=== PATIENT | male | born 1960 | race Caucasian/White ===

== ENCOUNTER 2019-07-08 09:39 | Emergency (ER) | payer BC, MEDICAID ==
--- NOTE | 2019-07-08 10:48 | EDM.PDOC ---
ED HPI GENERAL MEDICAL PROBLEM - General Chief Complaint: Abdominal Pain Stated Complaint: RT SIDE PAIN Time Seen by Provider: 07/08/19 10:38 - History of Present Illness INITIAL COMMENTS - FREE TEXT/NARRATIVE: 58-year-old male presents the emergency room with right-sided abdominal pain. This pain started last night. It was in his right flank region. It awoke him shortly after midnight probably been the most severe pain he ever had. Patient has not had any fevers or chills. He is never had pain like this in the past. Patient denies any abdominal surgeries in the past. Patient describes a bloating sensation in his abdomen. And at times this pain tends to radiate to the right groin. He really does not have too much nausea no vomiting no diarrhea no constipation. He has not noticed any blood in his urine. He does have a history of prostate problems and might have a history of some renal insufficiency. Right Lower Abdomen Pain Score (Numeric/FACES): 4 - Related Data Allergies Allergy/AdvReac Type Severity Reaction Status Date / Time No Known Allergies Allergy Verified 07/08/19 09:55 Home Meds: Home Meds Levothyroxine 175 mg PO DAILY 05/18/16 [History] Lisinopril 40 mg PO DAILY 05/18/16 [History] Tadalafil [Cialis] 5 mg PO DAILY 05/18/16 [History] amLODIPine [Norvasc] 5 mg PO DAILY 05/18/16 [History] Aspirin 81 mg PO DAILY 07/08/19 [History] Famotidine [Pepcid] 20 mg PO DAILY 07/08/19 [History] Hydroxychloroquine [Plaquenil] 200 mg PO BID 07/08/19 [History] ISOtretinoin [Absorica] 40 mg PO ASDIRECTED 07/08/19 [History] oxyCODONE 5 - 10 mg PO Q6H #20 tab 07/08/19 [Rx] Past Medical History HEENT History: Reports: Impaired Vision Cardiovascular History: Reports: High Cholesterol, Hypertension Respiratory History: Reports: None Gastrointestinal History: Reports: None Genitourinary History: Reports: Prostate Disorder Psychiatric History: Reports: None Endocrine/Metabolic History: Reports: Hypothyroidism, Obesity/BMI 30+ Hematologic History: Reports: None Immunologic History: Reports: None Oncologic (Cancer) History: Reports: None Dermatologic History: Reports: Other (See Below) Other Dermatologic History: Pt states that he has a skin condition that is causing him to lose his hair, unsure of what it is called. 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 Social & Family History - Tobacco Use Smoking Status *Q: Never Smoker - Caffeine Use Caffeine Use: Reports: None - Recreational Drug Use Recreational Drug Use: No ED ROS GENERAL - Review of Systems Review Of Systems: See Below Constitutional: Reports: No Symptoms HEENT: Reports: No Symptoms Respiratory: Reports: No Symptoms Cardiovascular: Reports: No Symptoms GI/Abdominal: Reports: Abdominal Pain, Nausea. Denies: Constipation, Diarrhea, Vomiting : Denies: Dysuria, Flank Pain, Hematuria, Pain Musculoskeletal: Reports: No Symptoms Skin: Reports: No Symptoms ED EXAM, GI/ABD - Physical Exam Exam: See Below Exam Limited By: No Limitations General Appearance: No: Alert, No Apparent Distress Head: Atraumatic, Normocephalic Neck: Normal Inspection, Supple, Non-Tender, Full Range of Motion. No: Lymphadenopathy (L), Lymphadenopathy (R) Respiratory/Chest: No Respiratory Distress, Lungs Clear, Normal Breath Sounds Cardiovascular: Regular Rate, Rhythm, No Edema, No Murmur GI/Abdominal Exam: Normal Bowel Sounds, Soft, Other (He may have a little bit of bloating. He has no left-sided abdominal pain whatsoever he has pain in the right side of his abdomen both upper and lower quadrant this is not generally worsened with palpation and to you get to the right upper quadrant. He has no suprapubic discomfort. No rigidity rebound or guarding noted) Course - Vital Signs Last Recorded V/S: Last Vital Signs Temp 36.8 C 07/08/19 09:50 Pulse 68 07/08/19 13:00 Resp 16 07/08/19 09:50 BP 130/80 07/08/19 12:10 Pulse Ox 97 07/08/19 13:00 - Orders/Labs/Meds Orders: Active Orders 24 hr Category Date Time Status Lactated Ringers [Ringers, Lactated] 1,000 ml Med 07/08/19 11:00 Active IV ASDIRECTED Medication Orders Lactated Ringer's (Ringers, Lactated) 1,000 mls @ 125 mls/hr IV ASDIRECTED JEOVANNY Last Admin: 07/08/19 11:29 Dose: 125 mls/hr Labs: Laboratory Tests 07/08/19 07/08/19 07/08/19 Range/Units 11:55 11:55 13:16 WBC 11.97 H (4.23-9.07) K/mm3 RBC 4.90 (4.63-6.08) M/mm3 Hgb 14.5 (13.7-17.5) gm/dl Hct 44.0 (40.1-51.0) % MCV 89.8 (79.0-92.2) fl MCH 29.6 (25.7-32.2) pg MCHC 33.0 (32.2-35.5) g/dl RDW Std Deviation 45.2 H (35.1-43.9) fL Plt Count 296 (163-337) K/mm3 MPV 11.0 (9.4-12.3) fl Neut % (Auto) 82.0 H (34.0-67.9) % Lymph % (Auto) 7.0 L (21.8-53.1) % Rankin % (Auto) 10.2 (5.3-12.2) % Eos % (Auto) 0.5 L (0.8-7.0) Baso % (Auto) 0.2 (0.1-1.2) % Neut # (Auto) 9.82 H (1.78-5.38) K/mm3 Lymph # (Auto) 0.84 L (1.32-3.57) K/mm3 Rankin # (Auto) 1.22 H (0.30-0.82) K/mm3 Eos # (Auto) 0.06 (0.04-0.54) K/mm3 Baso # (Auto) 0.02 (0.01-0.08) K/mm3 Manual Slide Review Abnormal smear Sodium 141 (136-145) mEq/L Potassium 4.3 (3.5-5.1) mEq/L Chloride 107 (98-107) mEq/L Carbon Dioxide 23 (21-32) mEq/L Anion Gap 15.3 H (5-15) BUN 17 (7-18) mg/dL Creatinine 1.4 H (0.7-1.3) mg/dL Est Cr Clr Drug Dosing 60.11 mL/min Estimated GFR (MDRD) 52 (>60) mL/min BUN/Creatinine Ratio 12.1 L (14-18) Glucose 111 H (74-106) mg/dL Calcium 10.0 (8.5-10.1) mg/dL Total Bilirubin 0.5 (0.2-1.0) mg/dL AST 14 L (15-37) U/L ALT 27 (16-63) U/L Alkaline Phosphatase 74 (46-116) U/L Total Protein 6.6 (6.4-8.2) g/dl Albumin 3.9 (3.4-5.0) g/dl Globulin 2.7 gm/dL Albumin/Globulin Ratio 1.4 (1-2) Lipase 142 (73-393) U/L Urine Color Yellow (Yellow) Urine Appearance Clear (Clear) Urine pH 6.0 (5.0-8.0) Ur Specific [place] > or = 1.030 (1.005-1.030) Urine Protein Negative (Negative) Urine Glucose (UA) Negative (Negative) Urine Ketones Negative (Negative) Urine Occult Blood 3+ H (Negative) Urine Nitrite Negative (Negative) Urine Bilirubin Negative (Negative) Urine Urobilinogen 0.2 (0.2-1.0) Ur Leukocyte Esterase Negative (Negative) Urine RBC 20-30 H (0-5) /hpf Urine WBC Not seen (0-5) /hpf Ur Squamous Epith Cells 5-10 H (0-5) /hpf Urine Bacteria Not seen (FEW) /hpf Urine Mucus Not seen (FEW) /hpf Meds: Medications Generic Name Dose Route Start Last Admin Trade Name Freq PRN Reason Stop Dose Admin Lactated Ringer's 1,000 mls @ 125 mls/hr 07/08/19 11:00 07/08/19 11:29 Ringers, Lactated IV 125 mls/hr ASDIRECTED JEOVANNY Administration Discontinued Medications Generic Name Dose Route Start Last Admin Trade Name Freq PRN Reason Stop Dose Admin Hydromorphone HCl 0.5 mg 07/08/19 10:53 07/08/19 11:30 Dilaudid IVPUSH 07/08/19 10:54 0.5 mg ONETIME ONE Administration Tamsulosin HCl 0.4 mg 04/03/20 14:27 Flomax PO 07/08/19 14:28 ONETIME ONE - Re-Assessments/Exams Free Text/Narrative Re-Assessment/Exam: 07/08/19 12:49 Only took an hour to get IV access meds go on and labs drawn. My hope was to look at his creatinine before ordering a CAT scan. So this delay has slowed me down the patient received 0.5 of Dilaudid and is feeling quite a bit better 07/08/19 15:00 Labs reviewed his creatinine is 1.4. The patient should not use acetaminophen because of interactions with his skin medication. He should not use nonsteroidals because of his renal function and age. The patient will be given OxyIR. I discussed the patient's case with Dr. Mejia, the patient's regular physician, who will see the patient at [facility] on Thursday. The patient will show up at 2:00 to get blood work done. Departure - Departure Time of Disposition: 15:03 Disposition: Home, Self-Care 01 Clinical Impression: Kidney stone on right side - Discharge Information Referrals: Nehemias Navarrete MD [Primary Care Provider] - Forms: ED Department Discharge Additional Instructions: Return to the emergency room with any questions problems or worsening symptoms. Follow-up with Dr. Mejia on Thursday. Your appointment is at 2:45. However, show up at 2:00 and go to the lab to have your blood work done. Strain your urine and try and capture the stone. Dr. Mejia may want to have the stone analyzed. Use the oxycodone 1 or 2 every 4-6 hours as needed for pain. Allow 12 hours after using this medication before driving or returning to work. Sepsis Event Note - Evaluation Sepsis Screening Result: No Definite Risk - Focused Exam Vital Signs: Vital Signs Temp Pulse Pulse Resp BP BP Pulse Ox 07/08/19 13:00 68 97 07/08/19 12:45 64 94 L 07/08/19 12:30 66 93 L 07/08/19 12:15 76 99 07/08/19 12:10 66 130/80 96 07/08/19 12:09 70 99 07/08/19 12:00 64 96 07/08/19 11:45 67 95 07/08/19 11:30 70 97 07/08/19 11:15 72 96 07/08/19 11:01 70 144/86 H 96 07/08/19 11:00 69 97 07/08/19 10:46 75 153/102 H 98 07/08/19 10:45 85 99 07/08/19 10:31 70 144/84 H 92 L 07/08/19 10:30 69 98 07/08/19 10:16 77 157/88 H 96 07/08/19 10:15 84 98 07/08/19 10:02 79 97 07/08/19 09:50 36.8 C 87 16 177/106 H 99 Date Exam was Performed: 07/08/19 Time Exam was Performed: 15:00 - My Orders Last 24 Hours: My Active Orders 07/08/19 11:00 Lactated Ringers [Ringers, Lactated] 1,000 ml IV ASDIRECTED - Assessment/Plan Last 24 Hours: My Active Orders 07/08/19 11:00 Lactated Ringers [Ringers, Lactated] 1,000 ml IV ASDIRECTED
[2019-07-08] MEDS ORDERED: HYDROmorphone 0.5 MG/0.5 ML Syringe IVPUSH ONE (10:53)
[2019-07-08] MEDS ORDERED: Lactated Ringers 1,000 ML IV SCH (11:00)
[2019-07-08 12:14] VITALS: BP 130/80
[2019-07-08 13:47] VITALS: PULSE 68
--- NOTE | 2019-07-08 14:21 | CT ---
CT abdomen and pelvis Technique: Multiple axial sections were obtained from above the dome of the diaphragm inferiorly through the pubic symphysis. Intravenous and oral contrast not utilized. Study has been performed as a ureteral stone protocol. Findings: Right renal collecting system is mildly prominent in size. This finding is caused by a proximal obstructing ureteral stone located slightly past the UPJ measuring 4 mm in size. No additional ureteral calculi are seen. Cyst is noted within the right kidney measuring 3.7 cm in size. No abnormal calcifications are seen within the kidneys. Small cyst is also noted within the left kidney measuring 6 mm. Visualized lung bases show nothing acute. Liver shows no focal abnormality. Spleen appears within normal limits. Adrenal glands show no nodule. Pancreas shows no discrete abnormality. Gallbladder contains no calcified gallstones. Aorta shows no aneurysm. No retroperitoneal adenopathy or mesenteric abnormalities are seen. Appendix is seen which is normal. No pelvic mass or adenopathy is seen. Fat-containing right inguinal hernia is noted. No free fluid or inflammatory change is seen. Bone window settings were reviewed which shows mild scattered degenerative change within the spine. Disc space narrowing and vacuum phenomena is seen within the L5-S1 disc. Impression: 1. Proximal right ureteral obstructing calculus measuring 4 mm. This is located slightly past the UPJ. 2. Other findings believed to be nonacute in incidental as described above. Diagnostic code #3 Study was dictated in MDT
[2019-07-08] MEDS ORDERED: Tamsulosin 0.4 MG Cap.ER PO ONE (14:27)
== END 2019-07-08 15:22 | disposition home or self-care (01) ==
LOC: JD.ED 09:39
DX: N20.2 Calculus of kidney with calculus of ureter (principal); I10 Essential (primary) hypertension; E78.00 Pure hypercholesterolemia, unspecified; E03.9 Hypothyroidism, unspecified; Z79.82 Long term (current) use of aspirin; Z79.899 Other long term (current) drug therapy
CPT/HCPCS: 36415; 74176; 80053; 81001; 83690; 85025; 96361; 96374; 99284; J1170; J7120; 99283

== ENCOUNTER 2019-07-17 17:29 | Emergency (ER) | payer BC ==
[2019-07-17 17:54] VITALS: BP 143/92; PULSE 93
--- NOTE | 2019-07-17 18:29 | EDM.PDOC ---
ED HPI GENERAL MEDICAL PROBLEM - General Chief Complaint: Genitourinary Problem Stated Complaint: KIDNEY STONES Time Seen by Provider: 07/17/19 17:58 Source of Information: Reports: Patient History Limitations: Reports: No Limitations - History of Present Illness Onset: Today Duration: Getting Worse Location: Reports: Back Quality: Reports: Ache Severity: Moderate Improves with: Reports: Medication Worsens with: Reports: None Context: Reports: Other Associated Symptoms: Denies: Cough, Diaphoresis, Fever/Chills, Headaches, Loss of Appetite, Nausea/Vomiting, Shortness of Breath Treatments COUNSELLING PSYCHOLOGIST: Reports: Other (see below) (Patient with a diagnosis of a right U PJ stone 4 mm diagnosed with a CT scan abdomen pelvis on July 07 presents with frequency and urgency with urination. He also has intermittent right flank and right lower quadrant tenderness. Took hydrocodone earlier today and the pain is somewhat improved. He had a follow-up with as an outpatient at the office and had blood work and a urinalysis and never got the results back. Patient has not had a history of kidney stones ever in the past. No fevers chills or sweats no coughing or cold symptoms no nausea vomiting, has had some loose stool, initially was bloated and distended but his abdomen is more back toward normal. Denies any testicle pain or groin pain. Nothing really makes the pain better or worse. No bloody urine noted.) Right Lower Flank Pain Score (Numeric/FACES): 3 - Related Data Allergies Allergy/AdvReac Type Severity Reaction Status Date / Time No Known Allergies Allergy Verified 07/08/19 09:55 MDT Home Meds: Home Meds Levothyroxine 175 mg PO DAILY 05/18/16 [History] Lisinopril 40 mg PO DAILY 05/18/16 [History] Tadalafil [Cialis] 5 mg PO DAILY 05/18/16 [History] amLODIPine [Norvasc] 5 mg PO DAILY 05/18/16 [History] Aspirin 81 mg PO DAILY 07/08/19 [History] Famotidine [Pepcid] 20 mg PO DAILY 07/08/19 [History] Hydroxychloroquine [Plaquenil] 200 mg PO BID 07/08/19 [History] ISOtretinoin [Absorica] 40 mg PO ASDIRECTED 07/08/19 [History] oxyCODONE 5 - 10 mg PO Q6H #20 tab 07/08/19 [Rx] Past Medical History HEENT History: Reports: Impaired Vision Cardiovascular History: Reports: High Cholesterol, Hypertension Respiratory History: Reports: None Gastrointestinal History: Reports: None Genitourinary History: Reports: Prostate Disorder, Renal Calculus Psychiatric History: Reports: None Endocrine/Metabolic History: Reports: Hypothyroidism, Obesity/BMI 30+ Hematologic History: Reports: None Immunologic History: Reports: None Oncologic (Cancer) History: Reports: None Dermatologic History: Reports: Other (See Below) Other Dermatologic History: Pt states that he has a skin condition that is causing him to lose his hair, unsure of what it is called. 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 Social & Family History - Family History Family Medical History: Noncontributory - Tobacco Use Smoking Status *Q: Never Smoker Second Hand Smoke Exposure: No - Caffeine Use Caffeine Use: Reports: None ED ROS GENERAL - Review of Systems Review Of Systems: See Below Constitutional: Denies: Fever, Chills, Diaphoresis Respiratory: Reports: No Symptoms Cardiovascular: Reports: No Symptoms GI/Abdominal: Reports: No Symptoms. Denies: Diarrhea, Nausea, Vomiting : Reports: Flank Pain, Frequency, Urgency. Denies: Dysuria, Hematuria, Incontinence, Urinary Retention Musculoskeletal: Reports: Back Pain Skin: Reports: No Symptoms Neurological: Reports: No Symptoms Psychiatric: Reports: No Symptoms ED EXAM, GI/ABD - Physical Exam Exam: See Below Exam Limited By: No Limitations Throat/Mouth: Normal Inspection Respiratory/Chest: No Respiratory Distress, Lungs Clear Cardiovascular: Normal Peripheral Pulses, Regular Rate, Rhythm GI/Abdominal Exam: Normal Bowel Sounds, Soft, Non-Tender, No Distention Rectal (Males) Exam: Normal Exam Back Exam: Normal Inspection, CVA Tenderness (R) Extremities: Normal Inspection Neurological: Alert, Oriented, CN II-XII Intact Psychiatric: Normal Affect Skin Exam: Warm, Dry Course - Vital Signs Last Recorded V/S: Last Vital Signs Temp 97.8 F 07/17/19 17:50 MDT Pulse 93 07/17/19 17:50 MDT Resp 16 07/17/19 17:50 MDT BP 143/92 H 07/17/19 17:50 MDT Pulse Ox 96 07/17/19 17:50 MDT - Orders/Labs/Meds Orders: Active Orders 24 hr Category Date Time Status KUB [Abdomen 1V Flat] [CR] Stat Exams 07/17/19 18:12 Taken Labs: Laboratory Tests 07/17/19 Range/Units 18:40 MDT Urine Color Yellow (Yellow) Urine Appearance Slt cloudy H (Clear) Urine pH 6.0 (5.0-8.0) Ur Specific [place] > or = 1.030 (1.005-1.030) Urine Protein Trace H (Negative) Urine Glucose (UA) Negative (Negative) Urine Ketones Negative (Negative) Urine Occult Blood 2+ H (Negative) Urine Nitrite Negative (Negative) Urine Bilirubin Negative (Negative) Urine Urobilinogen 0.2 (0.2-1.0) Ur Leukocyte Esterase Negative (Negative) Urine RBC 20-30 H (0-5) /hpf Urine WBC 0-5 (0-5) /hpf Ur Squamous Epith Cells 5-10 H (0-5) /hpf Urine Bacteria Rare (FEW) /hpf Urine Mucus Few (FEW) /hpf - Re-Assessments/Exams Free Text/Narrative Re-Assessment/Exam: 07/17/19 18:[address] from July 07 and demonstrates a 4 mm right UPJ proximal stone on the right with some mild to moderate hydronephrosis. He had a mild white blood cell count elevation his creatinine was stable his urine did show microscopic hematuria but no signs of infection. Of sent home on pain medications, followed up in the office a few days later and never was put on any other medications or trials. We will repeat a KUB x-ray to see if we can see the stone, we will recheck his urine, at present does not seem like he has infection. He may benefit from more of an anti-inflammatory medication and might benefit add Flomax to his prostate regimen to see if that helps move the stone, otherwise may benefit from follow-up with urology. No signs of sepsis or infection at present. 07/17/19 19:16 Will add Flomax, no interactions with finasteride. Follow-up with urology Departure - Departure Time of Disposition: 19:22 Disposition: Home, Self-Care 01 Condition: Good Clinical Impression: Kidney stone - Discharge Information Instructions: Renal Colic, [id number], Kidney Stones, [id number] Referrals: Nehemias Navarrete MD [Primary Care Provider] - 1 Week ([facility] [address] [place] [id number] ) Forms: ED Department Discharge Additional Instructions: Drink more water and fluids, add ketorolac as directed for anti-inflammatory pain, recommend follow-up with urologist if not any better over the next week. Return if any signs of infection such as fevers, chills, vomiting and unable to keep down fluids, unable to urinate, bloody urine, increased pain, worse. Sepsis Event Note - Evaluation Sepsis Screening Result: No Definite Risk - Focused Exam Vital Signs: Vital Signs Temp Pulse Resp BP Pulse Ox 07/17/19 17:50 MDT 97.8 F 93 16 143/92 H 96 Date Exam was Performed: 07/17/19 Time Exam was Performed: 20:23 - My Orders Last 24 Hours: My Active Orders 07/17/19 18:12 KUB [Abdomen 1V Flat] [CR] Stat - Assessment/Plan Last 24 Hours: My Active Orders 07/17/19 18:12 KUB [Abdomen 1V Flat] [CR] Stat
--- NOTE | 2019-07-18 07:50 | CR ---
Abdomen: Supine view of the abdomen was obtained. Comparison: Prior noncontrast CT study of the abdomen and pelvis dated 07/08/19. No definite abnormal calcifications are appreciated. Calcification within left pelvis has the appearance of phleboliths. Bowel gas pattern is normal. No soft tissue abnormality is seen. Joint space narrowing is noted within the right hip. Impression: 1. Nonacute findings as described above. Diagnostic code #2 Study was dictated in MDT
== END 2019-07-17 19:30 | disposition home or self-care (01) ==
LOC: JD.ED 17:29
DX: N20.0 Calculus of kidney (principal); I10 Essential (primary) hypertension; E78.00 Pure hypercholesterolemia, unspecified; E03.9 Hypothyroidism, unspecified; E66.9 Obesity, unspecified; Z68.35 Body mass index [BMI] 35.0-35.9, adult; Z79.82 Long term (current) use of aspirin; Z79.899 Other long term (current) drug therapy
CPT/HCPCS: 74018; 74018-26; 81001; 99283; 99284-25

== ENCOUNTER 2020-02-22 16:40 | Emergency (ER) | payer BC ==
--- NOTE | 2020-02-22 18:22 | EDM.PDOC ---
ED HPI GENERAL MEDICAL PROBLEM - General Chief Complaint: Respiratory Problem Stated Complaint: COUGH, POSSIBLE PNEUMONIA Time Seen by Provider: 02/22/20 17:00 Source of Information: Reports: Patient History Limitations: Reports: No Limitations - History of Present Illness INITIAL COMMENTS - FREE TEXT/NARRATIVE: Patient is a 59-year-old male presenting to the emergency department with complaints of coughing fits and shortness of breath with exertion. He was diagnosed as Covid positive on February 09, however began having symptoms of fatigue on February 06 which is what caused him to be tested. He states he did not develop a cough until about 4 days after the positive Covid test. He states that he has intermittent episodes of coughing fits which cause him to cough so hard that he feels dizzy. He also complains of shortness of breath with exertion, however denies shortness of breath at rest. He has been fever free for the last 4 days. He has not seen a medical provider since his diagnosis with Covid. He denies any significant cardiac history. Chest Pain Score (Numeric/FACES): 2 - Related Data Allergies Allergy/AdvReac Type Severity Reaction Status Date / Time No Known Allergies Allergy Verified 07/08/19 09:55 Home Meds: Home Meds Levothyroxine 175 mg PO DAILY 05/18/16 [History] Lisinopril 40 mg PO DAILY 05/18/16 [History] amLODIPine [Norvasc] 5 mg PO DAILY 05/18/16 [History] Aspirin 81 mg PO DAILY 07/08/19 [History] Famotidine [Pepcid] 20 mg PO DAILY 07/08/19 [History] dexAMETHasone [Decadron] 6 mg PO BID 4 Days #8 tablet 02/22/20 [Rx] Past Medical History HEENT History: Reports: Impaired Vision Cardiovascular History: Reports: High Cholesterol, Hypertension Respiratory History: Reports: None Gastrointestinal History: Reports: None Genitourinary History: Reports: Prostate Disorder, Renal Calculus Psychiatric History: Reports: None Endocrine/Metabolic History: Reports: Hypothyroidism, Obesity/BMI 30+ Hematologic History: Reports: None Immunologic History: Reports: None Oncologic (Cancer) History: Reports: None Dermatologic History: Reports: Other (See Below) Other Dermatologic History: Pt states that he has a skin condition that is causing him to lose his hair, unsure of what it is called. 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 Social & Family History - Family History Family Medical History: No Pertinent Family History - Tobacco Use Tobacco Use Status *Q: Never Tobacco User - Caffeine Use Caffeine Use: Reports: Coffee, Soda - Recreational Drug Use Recreational Drug Use: No ED ROS GENERAL - Review of Systems Review Of Systems: See Below Constitutional: Reports: No Symptoms. Denies: Fever, Weakness HEENT: Reports: No Symptoms Respiratory: Reports: Shortness of Breath, Cough Cardiovascular: Reports: Lightheadedness Endocrine: Reports: No Symptoms GI/Abdominal: Reports: No Symptoms : Reports: No Symptoms Musculoskeletal: Reports: No Symptoms Skin: Reports: No Symptoms Neurological: Reports: No Symptoms Psychiatric: Reports: No Symptoms Hematologic/Lymphatic: Reports: No Symptoms Immunologic: Reports: No Symptoms ED EXAM, GENERAL - Physical Exam Exam: See Below General Appearance: Alert, WD/WN, No Apparent Distress Respiratory/Chest: No Respiratory Distress, Lungs Clear, No Accessory Muscle Use, Chest Non-Tender, Crackles (Fine crackles to the left lower lobe posteriorly.) Cardiovascular: Normal Peripheral Pulses, Regular Rate, Rhythm, No Edema, No Gallop, No JVD, No Murmur, No Rub GI/Abdominal: Normal Bowel Sounds, Soft, Non-Tender, No Organomegaly, No Distention, No Abnormal Bruit, No Mass Neurological: Alert, Oriented, CN II-XII Intact, Normal Cognition, Normal Gait, Normal Reflexes, No Motor/Sensory Deficits Psychiatric: Normal Affect Skin Exam: Warm, Dry, Intact, Normal Color, No Rash Course - Vital Signs Last Recorded V/S: Last Vital Signs Temp 97.7 F 02/22/20 20:21 Pulse 91 02/22/20 20:21 Resp 18 02/22/20 20:21 BP 131/70 02/22/20 20:21 Pulse Ox 96 02/22/20 20:21 - Orders/Labs/Meds Labs: Laboratory Tests 02/22/20 02/22/20 02/22/20 Range/Units 18:00 18:00 18:00 WBC 6.02 (4.23-9.07) K/mm3 RBC 5.12 (4.63-6.08) M/mm3 Hgb 14.4 (13.7-17.5) gm/dl Hct 43.8 (40.1-51.0) % MCV 85.5 D (79.0-92.2) fl MCH 28.1 (25.7-32.2) pg MCHC 32.9 (32.2-35.5) g/dl RDW Std Deviation 43.2 (35.1-43.9) fL Plt Count 263 (163-337) K/mm3 MPV 10.1 (9.4-12.3) fl Neut % (Auto) 75.7 H (34.0-67.9) % Lymph % (Auto) 10.8 L (21.8-53.1) % [place] % (Auto) 13.3 H (5.3-12.2) % Eos % (Auto) 0 L (0.8-7.0) Baso % (Auto) 0.0 L (0.1-1.2) % Neut # (Auto) 4.56 (1.78-5.38) K/mm3 Lymph # (Auto) 0.65 L (1.32-3.57) K/mm3 [place] # (Auto) 0.80 (0.30-0.82) K/mm3 Eos # (Auto) 0.00 L (0.04-0.54) K/mm3 Baso # (Auto) 0.00 L (0.01-0.08) K/mm3 D-Dimer, Quantitative 0.50 (0.19-0.50) mg/L Sodium 130 L D (136-145) mEq/L Potassium 4.3 (3.5-5.1) mEq/L Chloride 98 (98-107) mEq/L Carbon Dioxide 18 L (21-32) mEq/L Anion Gap 18.3 H (5-15) BUN 30 H (7-18) mg/dL Creatinine 1.7 H (0.7-1.3) mg/dL Est Cr Clr Drug Dosing 48.91 mL/min Estimated GFR (MDRD) 42 (>60) mL/min BUN/Creatinine Ratio 17.6 (14-18) Glucose 102 (74-106) mg/dL Calcium 8.6 (8.5-10.1) mg/dL Magnesium (1.8-2.4) mg/dl Total Bilirubin 0.6 (0.2-1.0) mg/dL AST 35 (15-37) U/L ALT 37 (16-63) U/L Alkaline Phosphatase 73 (46-116) U/L C-Reactive Protein 6.4 H* (<1.0) mg/dL Total Protein 6.8 (6.4-8.2) g/dl Albumin 3.2 L (3.4-5.0) g/dl Globulin 3.6 gm/dL Albumin/Globulin Ratio 0.9 L (1-2) 02/22/20 Range/Units 18:00 WBC (4.23-9.07) K/mm3 RBC (4.63-6.08) M/mm3 Hgb (13.7-17.5) gm/dl Hct (40.1-51.0) % MCV (79.0-92.2) fl MCH (25.7-32.2) pg MCHC (32.2-35.5) g/dl RDW Std Deviation (35.1-43.9) fL Plt Count (163-337) K/mm3 MPV (9.4-12.3) fl Neut % (Auto) (34.0-67.9) % Lymph % (Auto) (21.8-53.1) % [place] % (Auto) (5.3-12.2) % Eos % (Auto) (0.8-7.0) Baso % (Auto) (0.1-1.2) % Neut # (Auto) (1.78-5.38) K/mm3 Lymph # (Auto) (1.32-3.57) K/mm3 [place] # (Auto) (0.30-0.82) K/mm3 Eos # (Auto) (0.04-0.54) K/mm3 Baso # (Auto) (0.01-0.08) K/mm3 D-Dimer, Quantitative (0.19-0.50) mg/L Sodium (136-145) mEq/L Potassium (3.5-5.1) mEq/L Chloride (98-107) mEq/L Carbon Dioxide (21-32) mEq/L Anion Gap (5-15) BUN (7-18) mg/dL Creatinine (0.7-1.3) mg/dL Est Cr Clr Drug Dosing mL/min Estimated GFR (MDRD) (>60) mL/min BUN/Creatinine Ratio (14-18) Glucose (74-106) mg/dL Calcium (8.5-10.1) mg/dL Magnesium 2.1 (1.8-2.4) mg/dl Total Bilirubin (0.2-1.0) mg/dL AST (15-37) U/L ALT (16-63) U/L Alkaline Phosphatase (46-116) U/L C-Reactive Protein (<1.0) mg/dL Total Protein (6.4-8.2) g/dl Albumin (3.4-5.0) g/dl Globulin gm/dL Albumin/Globulin Ratio (1-2) Meds: Medications Discontinued Medications Generic Name Dose Route Start Last Admin Trade Name Freq PRN Reason Stop Dose Admin Dexamethasone 6 mg 02/22/20 18:51 02/22/20 19:10 Dexamethasone PO 02/22/20 18:52 6 mg ONETIME ONE Administration Sodium Chloride 1,000 mls @ 999 mls/hr 02/22/20 18:50 02/22/20 19:19 Normal Saline IV 02/22/20 19:50 999 mls/hr NOW STA Administration - Re-Assessments/Exams Free Text/Narrative Re-Assessment/Exam: 02/22/20 20:10 Otology was significant for sodium slightly low at 130, CO2 18, anion gap 18.3, BUN 30, creatinine 1.7, CRP 6.4. Chest x-ray showed patchy groundglass opacification and alveolar airspace disease in the right and left lower lobes and left lingula. These findings can be seen with Covid pneumonia. Dimer was negative. Based on results of patient's labs, he is slightly dry, therefore have ordered a 1 L bolus of normal saline. We will start him on dexamethasone 6 mg twice daily for 4 days. Oxygen saturations have maintained 93 to 95%, therefore he is stable enough to go home. We will discharge him home with a prescription for dexamethasone. Discharge instructions as documented. Departure - Departure Time of Disposition: 20:23 Disposition: Home, Self-Care 01 Condition: Good Clinical Impression: Pneumonia due to COVID-19 virus - Discharge Information *PRESCRIPTION DRUG MONITORING PROGRAM REVIEWED*: No *COPY OF PRESCRIPTION DRUG MONITORING REPORT IN PATIENT VELVET: No Prescriptions: dexAMETHasone [Decadron] 6 mg PO BID 4 Days #8 tablet Instructions: COVID-19 Frequently Asked Questions, COVID-19 Referrals: Nehemias Navarrete MD [Primary Care Provider] - Forms: ED Department Discharge Additional Instructions: You were seen in the ER this evening for continued shortness of breath and coughing with a known diagnosis of COVID-19. Work-up included blood work, and a chest x-ray. Results your work-up show that you do have bilateral viral Covid pneumonia. You are also dehydrated. While in the ER, you received a liter of IV fluids, as well as a first dose of dexamethasone which is a steroid. A prescription for dexamethasone has been sent to [facility]. Pick this up tomorrow and take it as prescribed. Recommend that you monitor your oxygen saturations intermittently throughout the day using a home pulse oximeter. If you are maintaining an oxygen saturation below 90%, you should return to the emergency department for reevaluation. Sepsis Event Note (ED) - Evaluation Sepsis Screening Result: No Definite Risk
[2020-02-22] MEDS ORDERED: Sodium Chloride 0.9% 1,000 ML IV STA (18:50)
[2020-02-22] MEDS ORDERED: Dexamethasone 4 MG Tab PO ONE (18:51)
[2020-02-22 20:22] VITALS: BP 131/70; PULSE 91
--- NOTE | 2020-02-23 08:46 | CR ---
PROCEDURE INFORMATION: Exam: XR Chest, 1 View Exam date and time: 02/22/2020 5:23 PM Age: 59 years old Clinical indication: Cough and shortness of breath; Patient HX: Day 10 of covid TECHNIQUE: Imaging protocol: XR of the chest Views: 1 view. COMPARISON: No relevant prior studies available. FINDINGS: Lungs: Patchy ground-glass opacification and alveolar airspace disease in the right and left lower lobes and left lingula. Pleural space: No pleural effusion. No pneumothorax. Heart/Mediastinum: The cardiac silhouette and mediastinal contours are unremarkable. Vasculature: Vascular calcifications in the aorta. Bones/joints: Degenerative changes in the spine. IMPRESSION: 1. Patchy ground-glass opacification and alveolar airspace disease in the right and left lower lobes and left lingula. These findings can be seen with COVID pneumonia. Differential diagnosis also includes pneumonia of other causes, and organizing pneumonia. Recommend followup chest x-ray to ensure resolution. 2. Incidental/nonacute findings are listed in the report. Thank you for allowing us to participate in the care of your patient. Dictated and Authenticated by: Jasmin Wolff MD 02/22/2020 7:08 PM Central Time ([place] & [place]) [facility]
== END 2020-02-22 21:05 | disposition home or self-care (01) ==
LOC: JD.ED 16:40
DX: U07.1 COVID-19 (principal); J12.89 Other viral pneumonia; I10 Essential (primary) hypertension; E03.9 Hypothyroidism, unspecified; E66.9 Obesity, unspecified; Z68.32 Body mass index [BMI] 32.0-32.9, adult; Z79.899 Other long term (current) drug therapy; Z79.82 Long term (current) use of aspirin
CPT/HCPCS: 36415; 71045; 80053; 83735; 85025; 85379; 86140; 99285; J7030; J8540; 99284

== ENCOUNTER 2020-03-04 08:08 | Emergency (ER) | payer BC ==
[2020-03-04 08:22] VITALS: BP 131/88; PULSE 97
[2020-03-04] MEDS ORDERED: Aspirin 81 MG Tab.Chew PO ONE (08:45)
--- NOTE | 2020-03-04 09:08 | EDM.PDOC ---
ED HPI GENERAL MEDICAL PROBLEM - General Chief Complaint: Respiratory Problem Stated Complaint: CHEST PAIN Time Seen by Provider: 03/04/20 08:24 Source of Information: Reports: Patient History Limitations: Reports: No Limitations - History of Present Illness INITIAL COMMENTS - FREE TEXT/NARRATIVE: The patient presents with right sided chest pain. This has been going on for over a week. He was diagnosed with COVID 19 on the . He was released from quarantine on the . He still has a slight cough and shortness of breath with exertion. The ches pain comes and goes and it is made worse by deep breathing. He has no fever, chills, abdominal pain, nausea or vomiting. He does not smoke. He has no history of heart disease. He has some cramping in his legs at times. He denies any swelling. Onset: Gradual Duration: Week(s): Location: Reports: Chest Quality: Reports: Sharp Severity: Moderate Improves with: Reports: None Worsens with: Reports: None Associated Symptoms: Reports: Chest Pain, Cough, Shortness of Breath. Denies: Fever/Chills, Headaches, Nausea/Vomiting Right Chest Pain Score (Numeric/FACES): 7 Left Chest Pain Score (Numeric/FACES): 5 - Related Data Allergies Allergy/AdvReac Type Severity Reaction Status Date / Time No Known Allergies Allergy Verified 03/04/20 08:22 Home Meds: Home Meds Levothyroxine 175 mg PO DAILY 05/18/16 [History] Lisinopril 40 mg PO DAILY 05/18/16 [History] amLODIPine [Norvasc] 5 mg PO DAILY 05/18/16 [History] Aspirin 81 mg PO DAILY 07/08/19 [History] Famotidine [Pepcid] 20 mg PO DAILY 07/08/19 [History] Tamsulosin HCl [Flomax] 0.4 mg PO DAILY 03/04/20 [History] Past Medical History HEENT History: Reports: Impaired Vision Cardiovascular History: Reports: High Cholesterol, Hypertension Respiratory History: Reports: None Gastrointestinal History: Reports: None Genitourinary History: Reports: Prostate Disorder, Renal Calculus Psychiatric History: Reports: None Endocrine/Metabolic History: Reports: Hypothyroidism, Obesity/BMI 30+ Hematologic History: Reports: None Immunologic History: Reports: None Oncologic (Cancer) History: Reports: None Dermatologic History: Reports: Other (See Below) Other Dermatologic History: Pt states that he has a skin condition that is causing him to lose his hair, unsure of what it is called. 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 Social & Family History - Family History Family Medical History: No Pertinent Family History - Tobacco Use Tobacco Use Status *Q: Never Tobacco User - Caffeine Use Caffeine Use: Reports: None - Recreational Drug Use Recreational Drug Use: No ED ROS GENERAL - Review of Systems Review Of Systems: See Below Constitutional: Reports: No Symptoms HEENT: Reports: No Symptoms Respiratory: Reports: Shortness of Breath, Cough Cardiovascular: Reports: Chest Pain Endocrine: Reports: No Symptoms GI/Abdominal: Reports: No Symptoms : Reports: No Symptoms Musculoskeletal: Reports: No Symptoms ED EXAM, GENERAL - Physical Exam Exam: See Below Exam Limited By: No Limitations General Appearance: Alert, No Apparent Distress Ears: Normal External Exam Nose: Normal Inspection Head: Atraumatic, Normocephalic Neck: Normal Inspection Respiratory/Chest: No Respiratory Distress, Lungs Clear, Normal Breath Sounds Cardiovascular: Regular Rate, Rhythm, No Edema, No Murmur GI/Abdominal: Soft, Non-Tender, No Organomegaly, No Mass Extremities: Normal Inspection #1 Interpretation EKG Date: 03/04/20 Time: 08:34 Rhythm: NSR Rate (Beats/Min): 83 [place]: Normal P-Wave: Present QRS: Normal ST-T: Normal QT: Normal Course - Vital Signs Last Recorded V/S: Last Vital Signs Temp 96.1 F L 03/04/20 08:16 Pulse 97 03/04/20 08:16 Resp 18 03/04/20 08:16 BP 131/88 03/04/20 08:16 Pulse Ox 100 03/04/20 08:16 - Orders/Labs/Meds Orders: Active Orders 24 hr Category Date Time Status Cardiac Monitoring [RC] . DIRECTED Care 03/04/20 08:44 Active EKG Documentation Completion [RC] STAT Care 03/04/20 08:39 Active Peripheral IV Care [RC] . DIRECTED Care 03/04/20 09:51 Active RT Post Treatment Assessment [RC] Click to Edit Care 03/04/20 11:23 Ordered RT Pre-Treatment Assessment [RC] Click to Edit Care 03/04/20 11:23 Ordered Ang Chest [CT] Stat Exams 03/04/20 09:51 Taken Chest 1V Frontal [CR] Stat Exams 03/04/20 08:44 Taken Albuterol [Proventil HFA] Med 03/04/20 11:23 Once See Dose Instructions INH ONETIME ONE Sodium Chloride 0.9% [Normal Saline] 100 ml Med 03/04/20 10:15 Active IV ASDIRECTED Sodium Chloride 0.9% [Saline Flush] Med 03/04/20 09:50 Active 10 ml FLUSH ASDIRECTED PRN Peripheral IV Insertion Adult [OM.PC] Routine Oth 03/04/20 09:50 Ordered Medication Orders Sodium Chloride (Normal Saline) 100 mls @ 60 mls/hr IV ASDIRECTED JEOVANNY Last Admin: 03/04/20 10:26 Dose: 60 mls/hr Documented by: YAMILA Sodium Chloride (Saline Flush) 10 ml FLUSH ASDIRECTED PRN PRN Reason: Keep Vein Open Last Admin: 03/04/20 10:00 Dose: 10 ml Documented by: RADHA Labs: Laboratory Tests 03/04/20 03/04/20 03/04/20 Range/Units 08:55 08:55 08:55 WBC 10.47 H (4.23-9.07) K/mm3 RBC 4.46 L (4.63-6.08) M/mm3 Hgb 13.1 L (13.7-17.5) gm/dl Hct 38.7 L (40.1-51.0) % MCV 86.8 (79.0-92.2) fl MCH 29.4 (25.7-32.2) pg MCHC 33.9 (32.2-35.5) g/dl RDW Std Deviation 42.3 (35.1-43.9) fL Plt Count 288 (163-337) K/mm3 MPV 10.6 (9.4-12.3) fl Neut % (Auto) 71.2 H (34.0-67.9) % Lymph % (Auto) 14.7 L (21.8-53.1) % [place] % (Auto) 13.2 H (5.3-12.2) % Eos % (Auto) 0.8 (0.8-7.0) Baso % (Auto) 0.1 (0.1-1.2) % Neut # (Auto) 7.46 H (1.78-5.38) K/mm3 Lymph # (Auto) 1.54 (1.32-3.57) K/mm3 [place] # (Auto) 1.38 H (0.30-0.82) K/mm3 Eos # (Auto) 0.08 (0.04-0.54) K/mm3 Baso # (Auto) 0.01 (0.01-0.08) K/mm3 D-Dimer, Quantitative 4.35 H (0.19-0.50) mg/L Sodium 141 D (136-145) mEq/L Potassium 4.3 (3.5-5.1) mEq/L Chloride 108 H (98-107) mEq/L Carbon Dioxide 23 (21-32) mEq/L Anion Gap 14.3 (5-15) BUN 16 (7-18) mg/dL Creatinine 1.2 (0.7-1.3) mg/dL Est Cr Clr Drug Dosing 69.28 mL/min Estimated GFR (MDRD) > 60 (>60) mL/min BUN/Creatinine Ratio 13.3 L (14-18) Glucose 102 (74-106) mg/dL Calcium 8.7 (8.5-10.1) mg/dL Total Bilirubin 0.4 (0.2-1.0) mg/dL AST 17 (15-37) U/L ALT 48 (16-63) U/L Alkaline Phosphatase 82 (46-116) U/L Troponin I < 0.017 (0.00-0.056) ng/mL C-Reactive Protein 3.1 H* (<1.0) mg/dL Total Protein 5.9 L (6.4-8.2) g/dl Albumin 2.7 L (3.4-5.0) g/dl Globulin 3.2 gm/dL Albumin/Globulin Ratio 0.8 L (1-2) Meds: Medications Generic Name Dose Route Start Last Admin Trade Name Freq PRN Reason Stop Dose Admin Sodium Chloride 100 mls @ 60 mls/hr 03/04/20 10:15 03/04/20 10:26 Normal Saline IV 60 mls/hr ASDIRECTED JEOVANNY Administration Sodium Chloride 10 ml 03/04/20 09:50 03/04/20 10:00 Saline Flush FLUSH 10 ml ASDIRECTED PRN Administration Keep Vein Open Discontinued Medications Generic Name Dose Route Start Last Admin Trade Name Raheemq PRN Reason Stop Dose Admin Aspirin 324 mg 03/04/20 08:45 03/04/20 08:58 Aspirin PO 03/04/20 08:46 243 mg ONETIME ONE Administration Iopamidol 100 ml 03/04/20 10:08 03/04/20 10:26 Isovue-370 (76%) IVPUSH 03/04/20 10:09 80 ml ONETIME ONE Administration Sodium Chloride 10 ml 03/04/20 10:08 03/04/20 10:26 Saline Flush FLUSH 03/04/20 10:09 10 ml ONETIME ONE Administration - Re-Assessments/Exams Free Text/Narrative Re-Assessment/Exam: 03/04/20 09:07 I ordered an EKG, CXR, labs and aspirin. 03/04/20 10:32 His WBC is elevated at 10.47. His D-dimer is elevated at 4.35. His CMP looks good. His troponin is negative. His CRP is elevated at 3.1. I ordered an IV saline lock and a CT angio of his chest. 03/04/20 11:[address] shows no pulmonary embolism present. Peripheral ground-glass opacity with nodular character. The finding is compatible with probable COVID 19 pneumonia. Trace pleural effusions bilaterally. He wanted an inhaler so I have ordered it. Departure - Departure Time of Disposition: 11:30 Disposition: Home, Self-Care 01 Condition: Good Clinical Impression: Pneumonia due to COVID-19 virus, COVID-19 - Discharge Information *PRESCRIPTION DRUG MONITORING PROGRAM REVIEWED*: Not Applicable *COPY OF PRESCRIPTION DRUG MONITORING REPORT IN PATIENT VELVET: Not Applicable Referrals: Nehemias Navarrete MD [Primary Care Provider] - Forms: ED Department Discharge Additional Instructions: Use the albuterol 2 puffs every 6 hours as needed for shortness of breath. Please return if you are worse. Sepsis Event Note (ED) - Evaluation Sepsis Screening Result: Possible Sepsis Risk - Focused Exam Vital Signs: Vital Signs Temp Pulse Resp BP Pulse Ox 03/04/20 08:16 96.1 F L 97 18 131/88 100 - My Orders Last 24 Hours: My Active Orders 03/04/20 08:39 EKG Documentation Completion [RC] STAT 03/04/20 08:44 Cardiac Monitoring [RC] . DIRECTED Chest 1V Frontal [CR] Stat 03/04/20 09:50 Sodium Chloride 0.9% [Saline Flush] 10 ml FLUSH ASDIRECTED PRN Peripheral IV Insertion Adult [OM.PC] Routine 03/04/20 09:51 Peripheral IV Care [RC] . DIRECTED Ang Chest [CT] Stat 03/04/20 10:15 Sodium Chloride 0.9% [Normal Saline] 100 ml IV ASDIRECTED 03/04/20 11:23 RT Post Treatment Assessment [RC] Click to Edit RT Pre-Treatment Assessment [RC] Click to Edit Albuterol [Proventil HFA] See Dose Instructions INH ONETIME ONE - Assessment/Plan Last 24 Hours: My Active Orders 03/04/20 08:39 EKG Documentation Completion [RC] STAT 03/04/20 08:44 Cardiac Monitoring [RC] . DIRECTED Chest 1V Frontal [CR] Stat 03/04/20 09:50 Sodium Chloride 0.9% [Saline Flush] 10 ml FLUSH ASDIRECTED PRN Peripheral IV Insertion Adult [OM.PC] Routine 03/04/20 09:51 Peripheral IV Care [RC] . DIRECTED Ang Chest [CT] Stat 03/04/20 10:15 Sodium Chloride 0.9% [Normal Saline] 100 ml IV ASDIRECTED 03/04/20 11:23 RT Post Treatment Assessment [RC] Click to Edit RT Pre-Treatment Assessment [RC] Click to Edit Albuterol [Proventil HFA] See Dose Instructions INH ONETIME ONE
[2020-03-04] MEDS ORDERED: Sodium Chloride 0.9% 10 ML Syringe FLUSH PRN (09:50)
[2020-03-04] MEDS ORDERED: Sodium Chloride 0.9% 10 ML Syringe FLUSH ONE (10:08)
[2020-03-04] MEDS ORDERED: Iopamidol 755 Mg/ML 100 ML Bottle IVPUSH ONE (10:08)
[2020-03-04] MEDS ORDERED: Sodium Chloride 0.9% 100 ML IV SCH (10:15)
[2020-03-04] MEDS ORDERED: Albuterol 6.7 GM Inhaler INH ONE (11:23)
--- NOTE | 2020-03-05 12:53 | CR ---
PROCEDURE INFORMATION: Exam: XR Chest, 1 View Exam date and time: 03/04/2020 8:59 AM Age: 59 years old Clinical indication: Chest pain; Type not specified TECHNIQUE: Imaging protocol: XR of the chest Views: 1 view. COMPARISON: CR Chest 1V Frontal 02/22/2020 5:23 PM FINDINGS: Lungs: There remains mild peripheral ground-glass opacity within the lungs. Findings could represent multilobar pneumonia including atypical/viral etiologies. Pleural space: Unremarkable. No pleural effusion. No pneumothorax. Heart/Mediastinum: Unremarkable. No cardiomegaly. Bones/joints: Unremarkable. IMPRESSION: 1. Persisting mild peripheral ground-glass opacities concerning for multilobar pneumonia. Consider viral etiology. No change from previous examination. Thank you for allowing us to participate in the care of your patient. Dictated and Authenticated by: Doyle Weaver MD 03/04/2020 10:30 AM Central Time ([place] & [place]) [facility]
--- NOTE | 2020-03-05 12:58 | CT ---
PROCEDURE INFORMATION: Exam: CT Angiography Chest With Contrast Exam date and time: 03/04/2020 10:04 AM Age: 59 years old Clinical indication: Abnormal findings; Abnormal diagnostic tests; Patient HX: Covid, elevated d-dimer, RT sided chest pain TECHNIQUE: Imaging protocol: Computed tomographic angiography of the chest with intravenous contrast. 3D rendering (Not supervised by radiologist): MIP and/or 3D reconstructed images were created by the technologist. Radiation optimization: All CT scans at this facility use at least one of these dose optimization techniques: automated exposure control; mA and/or kV adjustment per patient size (includes targeted exams where dose is matched to clinical indication); or iterative reconstruction. Contrast material: ISOVVUE 370; Contrast volume: 80 ml; Contrast route: INTRAVENOUS (IV); COMPARISON: CR Chest 1V Frontal 03/04/2020 8:59 AM FINDINGS: Pulmonary arteries: Normal. No pulmonary emboli. Aorta: Unremarkable. No aortic aneurysm. No aortic dissection. Lungs: There is patchy peripheral ground-glass airspace opacity with nodular character. Findings concerning for possible atypical/viral pneumonia. Pleural space: Trace pleural effusions are present bilaterally. Heart: Unremarkable. No cardiomegaly. No pericardial effusion. Lymph nodes: Unremarkable. No enlarged lymph nodes. Bones/joints: Unremarkable. No acute fracture. Soft tissues: Unremarkable. IMPRESSION: 1. No pulmonary embolism present. 2. Peripheral ground-glass opacity with nodular character. The finding is compatible with probable COVID-19 pneumonia. 3. Trace pleural effusions bilaterally. Thank you for allowing us to participate in the care of your patient. Dictated and Authenticated by: Doyle Weaver MD 03/04/2020 11:39 AM Central Time ([place] & [place]) [facility]
== END 2020-03-04 11:59 | disposition home or self-care (01) ==
LOC: JD.ED 08:08
DX: U07.1 COVID-19 (principal); J12.89 Other viral pneumonia; I10 Essential (primary) hypertension; N42.9 Disorder of prostate, unspecified; E03.9 Hypothyroidism, unspecified; E66.9 Obesity, unspecified; Z68.32 Body mass index [BMI] 32.0-32.9, adult; Z79.82 Long term (current) use of aspirin; Z79.899 Other long term (current) drug therapy
CPT/HCPCS: 36415; 71045; 71275; 80053; 84484; 85025; 85379; 86140; 93005; 94640; 99285; A9270; Q9967; 93010; 99284

== ENCOUNTER 2023-07-01 20:00 | Emergency (ER) | payer BC ==
[2023-07-01 22:37] VITALS: BP 137/87; PULSE 67
== END 2023-07-01 22:33 | disposition home or self-care (01) ==
LOC: JD.ED 20:00
DX: S11.91XA Laceration without foreign body of unspecified part of neck, initial encounter (principal); S00.81XA Abrasion of other part of head, initial encounter; F10.920 Alcohol use, unspecified with intoxication, uncomplicated; R93.89 Abnormal findings on diagnostic imaging of other specified body structures; I10 Essential (primary) hypertension; E78.00 Pure hypercholesterolemia, unspecified; E66.9 Obesity, unspecified; E03.9 Hypothyroidism, unspecified; Z86.16 Personal history of COVID-19; Z79.82 Long term (current) use of aspirin; Z79.899 Other long term (current) drug therapy; W19.XXXA Unspecified fall, initial encounter
CPT/HCPCS: 70450; 70450-26; 70486; 70486-26; 72125; 72125-26; 99283; 99284